=== PATIENT | male | born 1955 | race Caucasian/White ===

== ENCOUNTER → 2017-08-19 | Day surgery (SDC) | payer OTHER ==
[~2017-08-19] MED LIST: LACTATED RINGER'S 1000 ML INJ 1,000 ML ONE; MIDAZOLAM HCL 2 MG/2 ML VIAL ONE; PROPOFOL 100 MG/10 ML INJ IV ONE
--- NOTE | 2017-08-19 13:08 | MP ---
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 PROCEDURE PERFORMED: Right knee manipulation under anesthesia. ANESTHESIA: General. SURGEON: Arcenio Duran MD GRAIN INSPECTOR SURGEON: None. COMPLICATIONS: None known. INDICATIONS FOR PROCEDURE: Esdras Seth is a 61-year-old male who underwent a total knee replacement 4 months and one week ago. He has had stiffness and failure to improve with conservative management. He now presents for manipulation under anesthesia. Risks and benefits were thoroughly discussed and a detailed informed consent was obtained. PROCEDURE: The patient was brought into the operating room. He was placed under general anesthetic, after an awake timeout. We then assessed the knee and gravity flexion was to 85 degrees. With gentle flexion, we flexed to 135 degrees and then we went to the full extension position. When we did this range of motion, there was significant crepitation within the knee consistent with breaking of scar tissue. We repeated this manipulation multiple times. No unusual findings during the procedure. When we are done, gravity flexion was 120 degrees and with one finger, I could push him to 135 degrees. If I pushed with the whole hand, I could go to 145 degrees. He had full extension, no instability. The patient was awoken and returned to recovery room in stable condition. MD SERGIO Baker/EMMETT , 12:49 PM , 01:07 PM
== END | disposition home or self-care (01) ==
LOC: ESDC 09:25
PROVIDERS: ATTEND Orthopaedic Surgery Sports Medicine
DX: M24.661 Ankylosis, right knee (principal); Z96.651 Presence of right artificial knee joint
CPT/HCPCS: 01380; 27570; J2250; J3010; J7120